=== PATIENT | female | born 1980 | race Caucasian/White ===

== ENCOUNTER 2021-07-18 13:08 | Emergency (ER) | payer BC ==
[~2021-07-18] VITALS: Ht 172.7 cm; Wt 77.1 kg
[2021-07-18 13:37] VITALS: BP 116/76
--- NOTE | 2021-07-18 13:37 | NUR ---
PT BIBSELF C/O SORE THROAT AND ON AND OFF FEVER [id number]. A/OX4. TOLERATING R/A AT 99%. AFEBRILE T 98.7.
--- NOTE | 2021-07-18 14:21 | NUR ---
GARIMA VELASCO AT PT'S BEDSIDE
--- NOTE | 2021-07-18 14:44 | NUR ---
Patient discharged to home in stable condition. Written and verbal after care instructions given. Patient verbalizes understanding of instruction. Refused to sign discharge papers.
== END 2021-07-18 14:48 | disposition home or self-care (01) ==
LOC: ER 13:33
DX: J31.2 Chronic pharyngitis (principal)